=== PATIENT | male | born 2005 ===

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

== ENCOUNTER 2023-06-26 22:43 | Emergency (ER) | payer MEDICAID, SELFPAY ==
[2023-06-26 22:46] VITALS: BP 153/82; PULSE 68; RESP 16; TEMP 37.1; O2SAT 100
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
== END 2023-06-26 23:06 | disposition home or self-care (01) ==
PROVIDERS: Emergency Provider Emergency Medicine
DX: R21 Rash and other nonspecific skin eruption (principal)
CPT/HCPCS: 99282

== ENCOUNTER 2023-09-30 16:16 | Emergency (ER) | payer MEDICAID, SELFPAY ==
[2023-09-30 16:18] VITALS: BP 158/75; PULSE 102; RESP 18; TEMP 36.6; O2SAT 100
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
--- NOTE | 2023-10-01 05:03 | PDOC.MHCN ---
Date of service: 09/30/23 Time of Service: 05:03 PHQ-9 Over the last 2 weeks, how often have you been bothered by any of the following problems? 1. Little interest or pleasure in doing things: not at all 2. Feeling down, depressed, or hopeless: several days 3. Trouble falling or staying asleep, or sleeping too much: not at all 4. Feeling tired or having little energy: not at all 5. Poor appetite or overeating: not at all 6. Feeling bad about yourself - or that you are a failure or have let yourself and your family down: nearly every day 7. Trouble concentrating on things, such as reading the newspaper or watching television: not at all 8. Moving or speaking so slowly that other people could have noticed? - Or the opposite - being so fidgety or restless that you have been moving around a lot more than usual: not at all 9. Thoughts that you would be better off or of hurting yourself in some way: several days Total score: 5 If you checked off any problems, how difficult have these problems made it for you to do your work, take care of things at home, or get along with other people?: not difficult at all Source: Developed by Drs. Sharif Vallejo, Mis Diaz, Grey Ochoa and colleagues, with an educational dean from [employer]. Suicide Severity Rate CSSRS Have you wished you were or wished you could go to sleep and not wake up?: No Have you actually had any thoughts of killing yourself?: Yes CSSRS2 Have you been thinking about how you might do this?: No Have you had these thoughts and had some intention of acting on them?: No Have you started to work out or worked out the details of how to kill yourself? Do you intend to carry out this plan?: No CSSRS3 Have you ever done anything, started to do anything or prepared to do anything to end your life?: No Screening Score Total Score: 2 Screening: Positive Mental Health Emergency Note Release [facility] release signed:: Yes Reason for Visit The client presented to the ED after he self inflicted cuts to his arm which required stitches. He initially refused to meet with [facility] but when informed he did not have a choice he agreed to engage in an assessment via phone. In the last 2 weeks has the pt presented for ES prior to today?: No Client Information Client is: Adult Outpatient Non Suicidal Self Injury Current: Yes, cuts on arm History: No Safety Risk/Harm to Self or Others Current Ideation to Harm Self or Others: No Risk: Does risk to harm exist?: No Risk: Low Risk Duty to warn indicated: No Asssessment/Mental Status Appearance: Other (Unable to assess as assessment took place via phone. ) Attitude: Cooperative Behavior: Other (Unable to assess as assessment took place via phone. ) Speech: Normal Affect: Other (Unable to assess as assessment took place via phone. ) Mood: Stressed and Anxious Thought process: Goal directed Hallucinations: No Delusions: No Attention: Unremarkable Perception: Not impaired Orientation: Fully orientated Memory: Intact Insight: Fair Judgement: Good Neurovegetative Symptoms Sleep: No change Appetitie: No change Interests: No change Energy: No change Libido: Not applicable Substance Use: Drug Issues: Dependence Do you use nicotine?: Yes Have you used substances in the last 7 days?: yes, THC 1-2 times a day. Additional Issues: Assaultive/Threatening Behavior: No Medical Concerns: No Client engaged in active self harm w/weapon: No Threatening to run away: No Child reported abuse/neglect: No Voluntarily presenting for services: Yes Domestic violence is a concern: No Extreme Psychosis or extreme behavior is present: No Impression The client is a 18 year old, single male who lives in [facility] with his girlfriend. The client reported that today he and his girlfriend were arguing and she had made a statement while he was pealing potatoes and listening to music that he was making her mad. He decided to leave their apartment and go to his grandmother's. He grabbed a razor and blacked out before cutting himself. The client noted that he blacked out a couple of times during this event however, was able to give full details of what he was doing therefore it is unlikely he blacked out but may have had some other form of reaction for example, could see himself outside of his body. The client was calm and expressed what he was feeling and was able to safety plan to go home. The client is diagnosed with PTSD. Plan/Disposition Recommended Disposition: Community resources. Plan: The client will do a check in call on 10.01 as agreed upon. Person reported agreement to plan: Yes Reports/communication Outcome discussed with: ED/Personnel
== END 2023-09-30 18:43 | disposition home or self-care (01) ==
PROVIDERS: Emergency Provider Registered Nurse Emergency
DX: M25.532 Pain in left wrist (principal); S61.512A Laceration without foreign body of left wrist, initial encounter; X78.9XXA Intentional self-harm by unspecified sharp object, initial encounter; F32.A Depression, unspecified; F91.3 Oppositional defiant disorder; R45.89 Other symptoms and signs involving emotional state
CPT/HCPCS: 00123; 12004; 96127

== ENCOUNTER 2023-12-04 15:53 | Emergency (ER) | payer MEDICAID, SELFPAY ==
[2023-12-04 16:01] VITALS: BP 152/85; PULSE 88; RESP 16; TEMP 36.7; O2SAT 98
[2023-12-04 16:13] VITALS: BP 152/85; PULSE 88; RESP 16; TEMP 36.7; O2SAT 98
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
== END 2023-12-04 17:01 | disposition home or self-care (01) ==
PROVIDERS: Emergency Provider Nurse Practitioner Family
DX: J06.9 Acute upper respiratory infection, unspecified (principal); R04.0 Epistaxis; G40.909 Epilepsy, unspecified, not intractable, without status epilepticus; E78.00 Pure hypercholesterolemia, unspecified; Z79.899 Other long term (current) drug therapy
CPT/HCPCS: 87426; 99283

== ENCOUNTER 2024-06-01 00:28 | Emergency (ER) | payer MEDICARE, MEDICAID, SELFPAY ==
[2024-06-01 00:31] VITALS: BP 160/88; PULSE 76; RESP 16; TEMP 37; O2SAT 98
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
--- NOTE | 2024-06-04 10:30 | NUR.NOTE ---
Accessed Pt chart to locate who the prescribing Dr was. It was Dr Macias
== END 2024-06-01 00:59 | disposition home or self-care (01) ==
PROVIDERS: Emergency Provider Student in an Organized Health Care Education/Training Program
DX: M77.11 Lateral epicondylitis, right elbow (principal); G40.909 Epilepsy, unspecified, not intractable, without status epilepticus; E78.00 Pure hypercholesterolemia, unspecified; K76.0 Fatty (change of) liver, not elsewhere classified; Q87.19 Other congenital malformation syndromes predominantly associated with short stature
CPT/HCPCS: 99283

== ENCOUNTER 2024-06-13 14:38 | Emergency (ER) | payer MEDICAID, SELFPAY | END 2024-06-13 16:26 | LOC: ER 15:35 | DX: Z53.21 Procedure and treatment not carried out due to patient leaving prior to being seen by health care provider (principal) ==

== ENCOUNTER 2024-12-31 19:33 | Emergency (ER) | payer MEDICARE, MEDICAID, SELFPAY ==
[2024-12-31 19:44] VITALS: BP 132/64; PULSE 125; RESP 20; TEMP 37.7; O2SAT 95
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
[2024-12-31] MEDS: Albuterol/Ipratropium 3 ML UPD VIAL UPD (20:27)
[2024-12-31] MEDS: Azithromycin 250 MG TAB 500 MG PO (20:27)
[2024-12-31] MEDS: Albuterol HFA 8 GM 60 PUFF INH IH (21:28)
[2024-12-31] MEDS: Inhaler, Assist Device 1 EACH MC (21:29)
[2024-12-31 21:36] VITALS: BP 140/60; PULSE 93; RESP 16; O2SAT 100
--- NOTE | 2025-01-01 12:04 | NUR.NOTE ---
Nursing Note: Received call from patients grandmother that inhaler was not available for black pickler. [facility] w[facility]Pharmacist Danilo. Prescription called in verbally and Grandmother updated that it will be available for black pickler
== END 2024-12-31 21:38 | disposition home or self-care (01) ==
PROVIDERS: Emergency Provider Emergency Medicine
DX: J06.9 Acute upper respiratory infection, unspecified (principal); J45.909 Unspecified asthma, uncomplicated; R50.9 Fever, unspecified
CPT/HCPCS: 94640; 99283; J7620

== ENCOUNTER → 2025-03-21 10:10 | Outpatient (BNVA) | payer MEDICARE, MEDICAID, SELFPAY | PROVIDERS: Visit Provider Psychiatry & Neurology Neurology | DX: R56.9 Unspecified convulsions (principal) | CPT/HCPCS: 99214 ==

== ENCOUNTER → 2025-06-04 12:14 | Outpatient (BNVA) | payer MEDICARE, MEDICAID, SELFPAY | PROVIDERS: Visit Provider Psychiatry & Neurology Neurology | DX: R56.9 Unspecified convulsions (principal); Q87.19 Other congenital malformation syndromes predominantly associated with short stature | CPT/HCPCS: 99213 ==

== ENCOUNTER 2025-08-16 15:10 | Outpatient (REF) | payer MEDICARE, MEDICAID, SELFPAY ==
[2025-08-17 19:03] LABS: HIV-1/2 Ag & Ab Screen Negative (Negative)
[2025-08-17 19:06] LABS: Hepatitis C Ab w Rflx HCV PCR Negative (Negative)
[2025-08-20 10:49] LABS: Syphilis Serology (RPR) Negative (Negative)
[2025-08-20 12:43] LABS: Chlamydia Result Negative (Negative); GC Result Negative (Negative)
== END 2025-08-16 15:11 | disposition home or self-care (01) ==
LOC: LBN 15:10
PROVIDERS: Visit Provider Physician Assistant Medical
DX: Z11.59 Encounter for screening for other viral diseases (principal)
CPT/HCPCS: 86803; 87389; 87491; 87591; 86592